=== PATIENT | male | born 1975 | race Caucasian/White ===

== ENCOUNTER 2017-12-15 11:53 | Day surgery (SDC) | payer OTHER, SELFPAY ==
[2017-12-15] VITALS (9 sets, daily range): BP systolic 100–149; BP diastolic 57–95; PULSE 70–89; RESP 20; TEMP 36.6–36.7; O2SAT 95–98; BMI 34.4
--- NOTE | 2017-12-15 | CA_ITS ---
Procedure: Limited transesophageal echocardiogram was performed to evaluate the mechanical prosthetic aortic valve and aortic insufficiency, due to patient's factors and respiratory status limited exam was obtained. Indication for procedure: Mechanically aortic valve with perivalvular aortic insufficiency status post plug for further evaluation. Procedure: Patient was brought in to the cardiac catheter lab holding area in hemodynamically stable condition, after the informed consent, conscious sedation was provided with the anesthesiologist, local anesthesia was applied, and transesophageal echocardiogram was performed without any difficulty, patient tolerated the procedure well. During the procedure patient has low oxygen saturations, on the request of the anesthesia for dependent respiratory failure only a limited study was performed. Findings: 1. Left atrium is moderately enlarged, left atrial appendage is free of thrombus 2. Right atrium is mildly enlarged, there is no thrombus in the right atrium. 3. The intra-atrial septum is intact, there is no flow across the intra-atrial septum. 4. There is mechanical prosthetic valve seen in the aortic position, there is morphologically no aortic stenosis, there is trace perivalvular aortic insufficiency seen. 5. The mitral valve leaflets are minimally thickened, there is mild mitral regurgitation. 6. The pulmonic valve is minimally thickened and fibrosed. 7. The tricuspid valve leaflets are minimally thickened, there is mild to moderate tricuspid regurgitation. 8. The right ventricle is mildly enlarged with normal contractility. 9. There is no significant pericardial effusion noted 10. Ascending and arch of the aorta is normal, descending thoracic aorta is not well visualized. 11. The left ventricle is normal size, there is preserved left ventricular systolic function in the obtained views. Conclusion: 1. Biatrial enlargement, normal left ventricular size, mild concentric left ventricular hypertrophy, visually estimated ejection fraction 55% in the obtained views. 2. Mildly enlarged right ventricle with normal contractility. 3. Mechanical prosthetic aortic valve, with trace aortic insufficiency after percutaneous closure of the perivalvular leak. 4. Mild to moderate tricuspid and mild mitral regurgitation. 5. No significant pericardial effusion noted.
--- NOTE | 2017-12-15 14:03 | P.PN_ITS ---
[facility] Anesthesia Checklist - Patient Identification Patient Identification: Arm Band - Structural Data Admitted From: Home Planned Operative Procedure/s: ROB Consent for Planned Operative Procedure(s) Verified: Yes Verified Documents: Surgical Consent, History and Physical - Additional verifications Anesthesia Reactions: No - Airway Assessment C-Spine Mobility Assessed: Yes (MP3) TMJ Mobility Assessed: Yes Dentition: Good Dentition - Neurological Assessment Level of Consciousness: Awake, Alert - Anesthesia Plan Anesthesia Risk discussed: Yes Anesthesia Plan: Verified ASA Class: III Anesthesia Type: MAC [facility] Anesthesia HX I have reviewed the patient's past medical history: Yes Medical History: Reports:: Coronary Artery Disease, Gastroesophageal Reflux Disease, Hyperlipidemia, Hypertension, Valvular Heart Disease Denies:: Diabetes Mellitus Type 1, Diabetes Mellitus Type 2 Other Surgeries: Yes: Angioplasty. No: Pacemaker Comment: Aortic Valve Replacement *Family Hx:: Coronary Artery Disease
== END 2017-12-15 14:12 | disposition home or self-care (01) ==
LOC: CATHLAB 11:56
PROVIDERS: Family Provider Family Medicine; PCP Nurse Practitioner Family; Visit Provider Internal Medicine Cardiovascular Disease
DX: I34.0 Nonrheumatic mitral (valve) insufficiency (principal); I51.7 Cardiomegaly
CPT/HCPCS: 93312

== ENCOUNTER → 2018-12-14 11:33 | Outpatient (CLI) | payer BC, SELFPAY ==
[2018-12-14 12:13] LABS: Basophils % 0.6 % (0.1-2.0); Eosinophils # 0.1 K/mm3 (0.0-0.4); Eosinophils % 1.5 % (0.1-12.0); Hematocrit 43.3 % (42.0-52.0); Hemoglobin 13.9 g/dL (14.1-18.0); Lymphocytes # 1.6 K/mm3 (0.7-4.5); Lymphocytes % 25.6 % (10-50); Mean Corpuscular HGB Conc 32.1 g/dL (31.8-35.4); Mean Corpuscular Volume 87.3 fl (80-94); Monocytes # 0.4 K/mm3 (0.1-1.0); Monocytes % 5.9 % (1.7-9.3); Neutrophils # 4.1 K/mm3 (1.8-7.8); Neutrophils % 66.3 % (37.0-80.0); Platelet Count 215 K/mm3 (142-424); Red Blood Count 4.97 M/mm3 (4.60-6.20); Red Cell Distribution Width 13.5 % (11.5-17.5); White Blood Count 6.2 K/mm3 (4.8-10.8)
[2018-12-14 12:47] LABS: Blood Urea Nitrogen 13 mg/dL (7-18); Calcium 8.9 mg/dL (8.5-10.1); Carbon Dioxide 28 mmol/L (21.0-32.0); Chloride 105 mmol/L (98-107); Creatinine,Serum 1.08 mg/dL (0.70-1.30); Estimated Glomerular Filt Rate 75 ml/min (>60); GFR (African American) 91 ML/MIN (>60); Glucose 122 mg/dL (74-106); Sodium 143 mmol/L (136-145)
== END ==
PROVIDERS: Visit Provider Internal Medicine Cardiovascular Disease
DX: I35.1 Nonrheumatic aortic (valve) insufficiency (principal); R60.0 Localized edema; Z72.0 Tobacco use; Z95.2 Presence of prosthetic heart valve
CPT/HCPCS: 36415; 80048; 85025

== ENCOUNTER → 2019-06-11 11:26 | Outpatient (CLI) | payer BC, SELFPAY ==
[2019-06-11 11:46] LABS: Basophils # 0.1 K/mm3 (0-0.2); Basophils % 0.8 % (0.1-2.0); Eosinophils # 0.1 K/mm3 (0.0-0.4); Eosinophils % 1.6 % (0.1-12.0); Hematocrit 43.6 % (42.0-52.0); Hemoglobin 13.7 g/dL (14.1-18.0); Lymphocytes # 2.5 K/mm3 (0.7-4.5); Lymphocytes % 30.1 % (10-50); Mean Corpuscular HGB Conc 31.3 g/dL (31.8-35.4); Mean Corpuscular Hemoglobin 26.7 pg (27.0-31.2); Mean Corpuscular Volume 85.4 fl (80-94); Mean Platelet Volume 7.2 fl (7.4-10.4); Monocytes # 0.6 K/mm3 (0.1-1.0); Monocytes % 7.3 % (1.7-9.3); Neutrophils % 60.4 % (37.0-80.0); Platelet Count 219 K/mm3 (142-424); Red Blood Count 5.11 M/mm3 (4.60-6.20); Red Cell Distribution Width 13.2 % (11.5-17.5); White Blood Count 8.3 K/mm3 (4.8-10.8)
[2019-06-11 13:27] LABS: Alanine Aminotransferase 34 U/L (12-78); Albumin Level 3.7 gm/dL (3.4-5.0); Alkaline Phosphatase 100 U/L (46-116); Anion Gap 10.4 mEq/L (5-15); Aspartate Amino Transferase 17 U/L (15-37); Bilirubin,Direct 0.1 mg/dL (0.0-0.2); Bilirubin,Indirect 0.3 mg/dL (0.0-0.9); Bilirubin,Total 0.4 mg/dL (0.2-1.0); Blood Urea Nitrogen 14 mg/dL (7-18); Calcium 9.2 mg/dL (8.5-10.1); Carbon Dioxide 30 mmol/L (21.0-32.0); Chloride 104 mmol/L (98-107); Chol/HDL Ratio 3.9 (1-3.5); Cholesterol 158 mg/dL (140-200); Creatinine,Serum 1.03 mg/dL (0.70-1.30); Estimated Glomerular Filt Rate 79 ml/min (>60); GFR (African American) 96 ML/MIN (>60); Glucose 92 mg/dL (74-106); HDL Cholesterol 41 mg/dL (27-67); LDL Cholesterol 76 mg/dL (0-130); Potassium 4.4 mmoL/L (3.5-5.1); Sodium 140 mmol/L (136-145); Total Protein,Serum 6.8 gm/dL (6.4-8.2); Triglycerides 203 mg/dL (30-200); VLDL Cholesterol 41 mg/dL (0-40)
== END ==
PROVIDERS: Visit Provider Physician Assistant
DX: I35.1 Nonrheumatic aortic (valve) insufficiency (principal); Z95.2 Presence of prosthetic heart valve; Z98.890 Other specified postprocedural states
CPT/HCPCS: 36415; 80048; 80061; 80076; 85025

== ENCOUNTER → 2020-06-16 09:34 | Outpatient (CLI) | payer BC, SELFPAY ==
--- NOTE | 2020-06-16 09:39 | CA_ITS ---
APPROVED REPORT EXAM: Comprehensive 2D, Doppler, and color-flow Echocardiogram Nurse Emergency: Mindi Brizuela RVT Ht: 5 ft 8 in Wt: 220lbs BSA: 2.13 BP: 121/83 mmHg Indications: MECHANICAL AVR S/P PLUG IN 2017,EX SMOKER 2D Dimensions LVOT 2.04 cm (M/F) 1.5-2.5 M-Mode Dimensions RVDd 3.48 cm (0.9-2.6) LVDd 4.80 cm (3.5-5.7) LVDs 3.14 cm (3.5-5.7) IVSd 1.70 cm (0.6-1.1) PWd 0.89 cm (0.6-1.1) EF (Teich) 63.60% FS 34.60% EDV (Teich) 107.50 mL ESV (Teich) 39.10 mL LV Diastology E/A Ratio 0.95 Aortic Valve LVOT Max 110.00 (70-110 cm/s) LVOT VTI 26.81 cm Mitral Valve MV A Velocity 73.00 (40-130 cm/s) Left Ventricle Left atrium is mildly enlarged, left ventricle is normal size, mild concentric left ventricular hypertrophy, there is abnormal septal motion, visually estimated ejection fraction 50 to 55% with no regional wall motion abnormality, diastolic parameters are inconclusive. Right Ventricle Right atrium and right ventricular relatively normal size and function. Aortic Valve There is a mechanical prosthetic valve noted in the aortic position, the valve is well-seated, the mean gradient across valve is within acceptable range, there is no aortic insufficiency. Mitral Valve Mitral valve is grossly normal, there is mild mitral regurgitation. Tricuspid Valve Tricuspid valve is grossly normal, there is mild tricuspid regurgitation, tricuspid regurgitation jet velocity is inadequate for calculation of the right ventricular systolic pressure. Pulmonic Valve Pulmonic valve is poorly visualized. Great Vessels Aortic root is normal size. Pericardium No significant pericardial effusion noted. Conclusion 1. Mildly enlarged left atrium, normal left ventricular size, mild concentric left ventricular hypertrophy, visually estimated ejection fraction 50 to 55% with no regional wall motion abnormality, there is abnormal septal motion, diastolic parameters are inconclusive. 2. Mechanical prosthetic aortic valve with acceptable gradients, there is no significant aortic insufficiency. 3. Mild mitral and tricuspid regurgitation. 4. No significant pericardial effusion noted. Electronically signed by : Samuel Olivares, 06/16/2020 19:56:10
== END ==
PROVIDERS: PCP Family Medicine; Visit Provider Physician Assistant
DX: I35.1 Nonrheumatic aortic (valve) insufficiency (principal); Z87.891 Personal history of nicotine dependence; Z95.2 Presence of prosthetic heart valve
CPT/HCPCS: 93306

== ENCOUNTER → 2020-12-15 09:54 | Outpatient (CLI) | payer BC, SELFPAY ==
[2020-12-15 11:08] LABS: Alanine Aminotransferase 26 U/L (12-78); Albumin Level 4.4 g/dl (3.5-5.0); Alkaline Phosphatase 111 U/L (38-126); Aspartate Amino Transferase 27 U/L (17-59); Bilirubin,Direct 0.3 mg/dl (0.0-0.4); Bilirubin,Indirect 0.3 mg/dL (0.0-0.9); Bilirubin,Total 0.6 mg/dl (0.2-1.3); Bilirubin,Unconjugated 0.3 mg/dL (0.0-1.1); Chol/HDL Ratio 4.3 (1-3.5); Cholesterol 169 mg/dl (140-200); HDL Cholesterol 39 mg/dl (40-60); Total Protein,Serum 7.6 g/dl (6.3-8.2); Triglycerides 308 mg/dl (30-150); VLDL Cholesterol 62 mg/dL (0-40)
[2020-12-15 11:19] LABS: Direct LDL Cholesterol 73.27 mg/dL (100-129)
== END ==
PROVIDERS: Visit Provider Urology
DX: E78.49 Other hyperlipidemia (principal); I10 Essential (primary) hypertension; Z95.2 Presence of prosthetic heart valve
CPT/HCPCS: 36415; 80061; 80076

== ENCOUNTER → 2022-02-08 12:10 | Outpatient (CLI) | payer BC, SELFPAY ==
--- NOTE | 2022-02-08 12:14 | CA_ITS ---
APPROVED REPORT EXAM: Comprehensive 2D, Doppler, and color-flow Echocardiogram Vp Care Management: ARABELLA Hernandez, RVS Ht: 5 ft 8 in Wt: 222lbs BSA: 2.14 BP: 131/86 mmHg Indications: Mechanical AVR, HTN, HLD, Family hx CAD 2D Dimensions IVSd 0.93 cm LVEF (Visual) 61.00 % PWd 1.09 cm LA Volume 53.60 mL LVDd 6.57 cm LA Volume Index [id number] mL/m2 (M/F) 16-34 LVDs 3.92 cm LVOT 2.04 cm (M/F) 1.5-2.5 M-Mode Dimensions LA Diam 3.44 cm (1.9-4.0) Ao Diam 3.58 cm (2.0-3.7) EPSs 0.51 cm TAPSE 1.66 (<1.7) LV Diastology E Decel Time 150.00 (160-240 msec) E/A Ratio 0.96 MED E' 8.00 (< 7 cm/sec) MED A' 10.90 cm/s E'/MED E' Ratio 7.26 (>14) LAT E' 8.40 (<10 cm/sec) LAT A' 11.50 cm/s E/LAT E' Ratio 6.92 (>14) Aortic Valve LVOT Max 105.00 (70-110 cm/s) LVOT VTI 23.07 cm AoV Peak Mateo. 239.00 (50-130 cm/s) AO Peak GR. 22.90 mmHg AO Mean GR. 13.30 (<5 mmHg) AO VTI 45.54 (18-25 cm) YVRSOE (VTI) 1.66 (2.5-4.5 cm2) Mitral Valve MV A Velocity 61.00 (40-130 cm/s) E/A Ratio 0.96 MV Decel. Time 150.00 (160-240 ms) MV Mean Gr. 1.20 (<2mmHg) MV PHT 43.00 ms Pulmonary Valve PV Peak Velocity 85.00 (50-150 cm/s) Tricuspid Valve TR P. Velocity 192.00 cm/s RAP Estimate 10.00 mmHg RVSP 24.80 mmHg Left Ventricle Left atrium is mildly enlarged, left ventricle is normal size, mild concentric left ventricular hypertrophy, visually estimated ejection fraction 50%, there is abnormal septal motion. Diastolic parameters are inconclusive. Right Ventricle Right atrium and right ventricle are normal size and contractility. Aortic Valve There is prosthetic valve noted in the aortic position, mean gradient across valve is 15 mmHg, valve area is calculated 1.7 cm???, there is no aortic insufficiency. Mitral Valve Mitral valve grossly normal, there is trace mitral regurgitation. Tricuspid Valve Tricuspid valve grossly normal, there is trace tricuspid regurgitation, tricuspid regurgitation jet velocity is inadequate for calculation of the right ventricular systolic pressure. Pulmonic Valve Pulmonic valve is poorly visualized. Great Vessels Aortic root is normal size. Inferior vena cava is poorly visualized. Pericardium No significant pericardial effusion noted. Conclusion 1. Normal left ventricular size, visually estimated ejection fraction 50%, there is abnormal septal motion, diastolic parameters are inconclusive. 2. Normal functioning prosthetic valve in the aortic position without significant aortic outflow obstruction or aortic insufficiency. 3. Trace mitral and tricuspid regurgitation. 4. No significant pericardial effusion. 5. Inferior vena cava is poorly visualized. Electronically signed by : Samuel Olivares MD 02/08/2022 19:31:12
== END ==
PROVIDERS: PCP Family Medicine; Visit Provider Nurse Practitioner Family
DX: I10 Essential (primary) hypertension (principal); E78.49 Other hyperlipidemia; Z95.2 Presence of prosthetic heart valve
CPT/HCPCS: 93306

== ENCOUNTER → 2023-01-24 14:29 | Outpatient (CLI) | payer OTHER, SELFPAY ==
--- NOTE | 2023-01-24 14:34 | CA_ITS ---
APPROVED REPORT EXAM: Comprehensive 2D, Doppler, and color-flow Echocardiogram Cardroom Attendant: Mindi Brizuela RVT Ht: 5 ft 8 in Wt: 215lbs BSA: 2.11 BP: 135/90 mmHg Indications: AVR-MECHANICAL,RODRÍGUEZ,HTN,HLD,EDEMA 2D Dimensions LVOT 2.15 cm (M/F) 1.5-2.5 LA Volume 28.40 mL LA Volume Index 13.46 mL/m2 (M/F) 16-34 M-Mode Dimensions RVDd 3.12 cm (0.9-2.6) LA Diam 4.08 cm (1.9-4.0) LVDd 5.36 cm (3.5-5.7) Ao Diam 3.00 cm (2.0-3.7) LVDs 3.95 cm (3.5-5.7) IVSd 1.29 cm (0.6-1.1) PWd 0.61 cm (0.6-1.1) EF (Teich) 51.10% FS 26.30% EDV (Teich) 138.90 mL TAPSE 1.58 (<1.7) ESV (Teich) 67.90 mL LV Diastology E Decel Time 180.00 (160-240 msec) E/A Ratio 0.9 MED E' 5.90 (< 7 cm/sec) E'/MED E' Ratio 9.58 (>14) LAT E' 9.90 (<10 cm/sec) E/LAT E' Ratio 5.71 (>14) Aortic Valve LVOT Max 106.00 (70-110 cm/s) LVOT VTI 22.05 cm AoV Peak Mateo. 238.00 (50-130 cm/s) AO Peak GR. 22.70 mmHg AO Mean GR. 13.80 (<5 mmHg) AO VTI 46.24 (18-25 cm) YVROSE (VTI) 1.73 (2.5-4.5 cm2) Mitral Valve MV E Max Mateo. 57.00 (40-130 cm/s) MV A Velocity 66.00 (40-130 cm/s) E/A Ratio 0.86 MV Decel. Time 180.00 (160-240 ms) MV PHT 53.00 ms Pulmonary Valve PV Peak Velocity 87.00 (50-150 cm/s) Tricuspid Valve TR P. Velocity 223.00 cm/s RAP Estimate 10.00 mmHg RVSP 29.90 mmHg Left Ventricle Left atrium is mildly enlarged, left ventricle is normal size, mild concentric left ventricular hypertrophy, estimated ejection fraction 55% with no regional wall motion abnormality, grade 1 diastolic dysfunction seen without tissue Doppler evidence of raise left atrial pressure. Right Ventricle Right atrium and right ventricular mildly enlarged with normal contractility. Aortic Valve There is mechanical prosthetic valve seen in the aortic position, the valve is well-seated, the mean gradient across valve is 13 mmHg, which is within acceptable range, there is no significant aortic insufficiency. Mitral Valve Mitral valve is grossly normal, there is trace mitral regurgitation. Tricuspid Valve Tricuspid valve grossly normal, there is trace tricuspid regurgitation, calculated right ventricular systolic pressure within normal range. Pulmonic Valve Pulmonic valve is poorly visualized. Great Vessels Aortic root is normal size. Inferior vena cava is normal size with normal inspiratory collapse. Pericardium No significant pericardial effusion noted. Conclusion 1. Mild biatrial enlargement, normal left ventricular size mild concentric left ventricular hypertrophy, estimated ejection fraction 55% with no regional wall motion abnormality, grade 1 diastolic dysfunction seen without tissue Doppler evidence of raise left atrial pressure. 2. Normal functioning mechanical prosthetic valve in the aortic position without aortic stenosis or aortic insufficiency. 3. Trace mitral and tricuspid regurgitation. 4. No significant pericardial effusion noted. 5. Inferior vena cava is normal size with normal inspiratory collapse. Electronically signed by : Samuel Olivares MD 01/24/2023 17:59:29
[2023-01-24 18:23] LABS: Basophils # 0.1 K/mm3 (0-0.2); Basophils % 1.2 % (0.1-2.0); Eosinophils # 0.2 K/mm3 (0.0-0.4); Eosinophils % 1.9 % (0.1-12.0); Hematocrit 45.8 % (42.0-52.0); Hemoglobin 15.3 g/dL (14.1-18.0); Lymphocytes # 2.2 K/mm3 (0.7-4.5); Lymphocytes % 21.9 % (10-50); Mean Corpuscular HGB Conc 33.3 g/dL (31.8-35.4); Mean Corpuscular Hemoglobin 28.3 pg (27.0-31.2); Mean Corpuscular Volume 84.8 fl (80-94); Mean Platelet Volume 8.1 fl (7.4-10.4); Monocytes # 0.5 K/mm3 (0.1-1.0); Monocytes % 5.3 % (1.7-9.3); Neutrophils # 7.1 K/mm3 (1.8-7.8); Neutrophils % 69.7 % (37.0-80.0); Platelet Count 226 K/mm3 (142-424); Red Cell Distribution Width 13.4 % (11.5-17.5); White Blood Count 10.2 K/mm3 (4.8-10.8)
[2023-01-24 18:37] LABS: Alanine Aminotransferase 27 U/L (12-78); Albumin Level 4.4 g/dl (3.5-5.0); Alkaline Phosphatase 83 U/L (38-126); Aspartate Amino Transferase 27 U/L (17-59); Bilirubin,Direct 0.2 mg/dl (0.0-0.4); Bilirubin,Indirect 0.4 mg/dL (0.0-0.9); Bilirubin,Total 0.6 mg/dl (0.2-1.3); Bilirubin,Unconjugated 0.5 mg/dL (0.0-1.1); Blood Urea Nitrogen 12 mg/dl (9-20); Carbon Dioxide 31 mmol/L (22.0-30.0); Chloride 106 mmol/L (98-107); Chol/HDL Ratio 4.4 (1-3.5); Cholesterol 119 mg/dl (140-200); Estimated Glomerular Filt Rate 72 ml/min (>60); GFR (African American) 87 ML/MIN (>60); Glucose 88 mg/dl (74-100); HDL Cholesterol 27 mg/dl (40-60); Magnesium 2.2 mg/dl (1.6-2.3); Sodium 139 mmol/L (136-145); Total Protein,Serum 7.1 g/dl (6.3-8.2); Triglycerides 182 mg/dl (30-150); VLDL Cholesterol 36 mg/dL (0-40)
[2023-01-24 18:47] LABS: Direct LDL Cholesterol 53.65 mg/dL (100-129)
[2023-01-24 18:53] LABS: Free T4 (Free Thyroxine) 0.94 ng/dl (0.78-2.19)
[2023-01-24 19:06] LABS: Thyroid Stimulating Hormone 1.04 uIU/mL (0.465-4.68)
== END ==
PROVIDERS: PCP Family Medicine; Visit Provider Internal Medicine
DX: R06.00 Dyspnea, unspecified (principal); R60.0 Localized edema; I10 Essential (primary) hypertension; E78.2 Mixed hyperlipidemia; I35.1 Nonrheumatic aortic (valve) insufficiency; Z95.2 Presence of prosthetic heart valve; Z98.890 Other specified postprocedural states
CPT/HCPCS: 36415; 80048; 80061; 80076; 83735; 84439; 84443; 85025; 93306

== ENCOUNTER 2024-01-18 12:01 | Outpatient (CLI) | payer BC, SELFPAY ==
[2024-01-18 12:24] LABS: Basophils % 0.5 % (0.1-2.0); Eosinophils # 0.1 K/mm3 (0.0-0.4); Eosinophils % 1.2 % (0.1-12.0); Hematocrit 44.1 % (42.0-52.0); Hemoglobin 14.2 g/dL (14.1-18.0); Lymphocytes # 1.9 K/mm3 (0.7-4.5); Lymphocytes % 27.3 % (10-50); Mean Corpuscular HGB Conc 32.2 g/dL (31.8-35.4); Mean Corpuscular Hemoglobin 28.1 pg (27.0-31.2); Mean Corpuscular Volume 87.4 fl (80-94); Monocytes # 0.4 K/mm3 (0.1-1.0); Monocytes % 5.4 % (1.7-9.3); Neutrophils # 4.5 K/mm3 (1.8-7.8); Neutrophils % 65.7 % (37.0-80.0); Platelet Count 247 K/mm3 (142-424); Red Blood Count 5.05 M/mm3 (4.60-6.20); Red Cell Distribution Width 14.1 % (11.5-17.5); White Blood Count 6.9 K/mm3 (4.8-10.8)
[2024-01-18 12:53] LABS: Chloride 108 mmol/L (98-107)
[2024-01-18 12:54] LABS: Potassium 4.3 mmoL/L (3.5-5.1); Sodium 138 mmol/L (136-145)
[2024-01-18 12:56] LABS: Alanine Aminotransferase 31 U/L (12-78); Anion Gap 3.3 mEq/L (5-15); Aspartate Amino Transferase 28 U/L (17-59); Bilirubin,Unconjugated 0.3 mg/dL (0.0-1.1); Blood Urea Nitrogen 9 mg/dl (9-20); Carbon Dioxide 31 mmol/L (22.0-30.0); Estimated Glomerular Filt Rate 90 ml/min (>60); GFR (African American) 109 ML/MIN (>60)
[2024-01-18 12:57] LABS: Albumin Level 3.7 g/dl (3.5-5.0); Alkaline Phosphatase 115 U/L (38-126); Bilirubin,Direct 0.1 mg/dl (0.0-0.4); Bilirubin,Indirect 0.3 mg/dL (0.0-0.9); Bilirubin,Total 0.4 mg/dl (0.2-1.3); Calcium 8.8 mg/dl (8.4-10.2); Chol/HDL Ratio 4.4 (1-3.5); Cholesterol 122 mg/dl (140-200); Glucose 97 mg/dl (74-100); HDL Cholesterol 28 mg/dl (40-60); Total Protein,Serum 6.3 g/dl (6.3-8.2); Triglycerides 226 mg/dl (30-150); VLDL Cholesterol 45 mg/dL (0-40)
[2024-01-18 16:45] LABS: Free T4 (Free Thyroxine) 0.78 ng/dl (0.78-2.19)
[2024-01-18 17:13] LABS: Direct LDL Cholesterol 58.59 mg/dL (100-129)
[2024-01-18 17:34] LABS: Thyroid Stimulating Hormone 0.85 uIU/mL (0.465-4.68)
== END 2024-01-18 23:59 ==
LOC: LAB 12:02
PROVIDERS: Visit Provider Nurse Practitioner Family
DX: I11.9 Hypertensive heart disease without heart failure (principal); E78.5 Hyperlipidemia, unspecified; I35.1 Nonrheumatic aortic (valve) insufficiency; K21.9 Gastro-esophageal reflux disease without esophagitis; Z95.2 Presence of prosthetic heart valve; Z98.890 Other specified postprocedural states; R06.00 Dyspnea, unspecified; Z87.891 Personal history of nicotine dependence
CPT/HCPCS: 36415; 80048; 80061; 80076; 84439; 84443; 85025

== ENCOUNTER 2025-01-17 10:14 | Outpatient (CLI) | payer BC, SELFPAY ==
[2025-01-17 10:26] LABS: Basophils # 0.1 K/mm3 (0-0.2); Basophils % 0.7 % (0.1-2.0); Eosinophils # 0.1 K/mm3 (0.0-0.4); Eosinophils % 1.1 % (0.1-12.0); Hematocrit 45.1 % (42.0-52.0); Hemoglobin 14.2 g/dL (14.1-18.0); Lymphocytes # 1.6 K/mm3 (0.7-4.5); Lymphocytes % 17.9 % (10-50); Mean Corpuscular HGB Conc 31.5 g/dL (31.8-35.4); Mean Corpuscular Hemoglobin 26.3 pg (27.0-31.2); Mean Corpuscular Volume 83.5 fl (80-94); Mean Platelet Volume 9.5 fl (7.4-10.4); Monocytes # 0.7 K/mm3 (0.1-1.0); Neutrophils # 6.5 K/mm3 (1.8-7.8); Neutrophils % 71.9 % (37.0-80.0); Platelet Count 232 K/mm3 (142-424); Red Cell Distribution Width 13.2 % (11.5-17.5); White Blood Count 9.1 K/mm3 (4.8-10.8)
[2025-01-17 10:49] LABS: Albumin Level 4.3 g/dl (3.5-5.0); Chloride 101 mmol/L (98-107); Potassium 3.9 mmoL/L (3.5-5.1); Sodium 142 mmol/L (136-145)
[2025-01-17 10:51] LABS: Alanine Aminotransferase 37 U/L (12-78); Anion Gap 8.9 mEq/L (5-15); Aspartate Amino Transferase 29 U/L (17-59); Bilirubin,Unconjugated 0.5 mg/dL (0.0-1.1); Blood Urea Nitrogen 12 mg/dl (9-20); Carbon Dioxide 36 mmol/L (22.0-30.0); Estimated Glomerular Filt Rate 80 ml/min (>60); GFR (African American) 97 ML/MIN (>60); Total Protein,Serum 6.9 g/dl (6.3-8.2)
[2025-01-17 10:52] LABS: Alkaline Phosphatase 101 U/L (38-126); Bilirubin,Indirect 0.5 mg/dL (0.0-0.9); Bilirubin,Total 0.5 mg/dl (0.2-1.3); Calcium 9.4 mg/dl (8.4-10.2); Chol/HDL Ratio 4.6 (1-3.5); Cholesterol 153 mg/dl (140-200); Glucose 89 mg/dl (74-100); HDL Cholesterol 33 mg/dl (40-60); Magnesium 1.8 mg/dl (1.6-2.3); Triglycerides 351 mg/dl (30-150); VLDL Cholesterol 70 mg/dL (0-40)
[2025-01-17 11:04] LABS: Direct LDL Cholesterol 61.28 mg/dL (100-129)
[2025-01-17 11:24] LABS: Thyroid Stimulating Hormone 0.86 uIU/mL (0.465-4.68)
[2025-01-17 13:00] LABS: Hemoglobin A1C 5.6 % (4.0-6.0)
== END 2025-01-17 23:59 | disposition home or self-care (01) ==
LOC: LAB 10:15
PROVIDERS: PCP Family Medicine; Visit Provider Physician Assistant
DX: I35.1 Nonrheumatic aortic (valve) insufficiency (principal); Z95.2 Presence of prosthetic heart valve; I10 Essential (primary) hypertension; E78.2 Mixed hyperlipidemia; E78.1 Pure hyperglyceridemia
CPT/HCPCS: 36415; 80048; 80061; 80076; 83036; 83735; 84439; 84443; 85025